=== PATIENT | male | born 1960 | race Caucasian/White ===

== ENCOUNTER → 2016-03-03 | Outpatient (CLI) | payer OTHER ==
--- NOTE | 2016-03-03 10:40 | DI ---
History: Elevated bilirubin. Evaluate for stone obstruction or mass. Prior examination abdomen CT performed 08/22/14 This procedure was performed on a 1.5 Lory magnet in axial and coronal projection with the right stella ging sequences including MRCP. No gadolinium contrast was administered. Findings: The heart is not enlarged. As discussed on the CT scan done 2 years ago, the inferior vena cava is prominent and moderately dilated. No filling defects are observed within the inferior vena ca va although there is some dephasing artifact with varying signal present. The portal vein is not dila olu. Regarding the liver, no focal mass is identified no intrahepatic ductal dilatation is identified . The common bile duct is somewhat prominent at 7 mm diameter but acceptable given the patient's stat us of prior cholecystectomy. No calculus is observed. No mass is observed. The pancreatic duct is wel l seen on image 06/27 and is not dilated. It is 2 mm in diameter. Kidneys appear normal. No mass or obstruction identified. The pancreas appears normal. Impression: No evidence of ductal dilatation in view of prior cholecystectomy. No evidence of focal h epatic or biliary mass. As noted in 2014, prominence of the inferior vena cava, possibly associated with an element of right heart failure. Clinical correlation advised.
== END ==
LOC: MRI 07:49
PROVIDERS: ATTEND Surgery
DX: E80.6 Other disorders of bilirubin metabolism (principal)
CPT/HCPCS: 74181

== ENCOUNTER → 2016-03-29 | Outpatient (CLI) | payer OTHER ==
[2016-03-29 12:41] LABS: ASPARTATE AMINO TRANSFERASE 34 IU/L (21-57); BILIRUBIN,TOTAL 1.4 mg/dL (0.3-1.2); BLOOD UREA NITROGEN 29 mg/dL (7-22); CALCIUM 9.4 mg/dL (8.7-10.7); CHLORIDE 102 meq/L (98-112); EST GLOMERULAR FILTRATION > 60 (>60 ml/min/1.73m(2)); GLUCOSE 96 mg/dL (78-110); HDL CHOLESTEROL 59 mg/dL (40-150); POTASSIUM 4.2 meq/L (3.8-5.2); SODIUM 138 meq/L (135-145); TOTAL PROTEIN 6.8 g/dL (6.1-8.0); TRIGLYCERIDES 88 mg/dL (44-200)
== END ==
LOC: LAB 11:42
PROVIDERS: ATTEND Family Medicine
DX: R94.5 Abnormal results of liver function studies (principal); R53.83 Other fatigue
CPT/HCPCS: 80053; 80061; 84443; 84550

== ENCOUNTER 2017-09-27 20:35 | Inpatient (IN) ==
[2017-09-27] MEDS ORDERED: ASPIRIN 81 MG (BABY) CHEWABLE TABLET PO ONE (20:47)
[2017-09-27] MEDS ORDERED: Sodium Chloride 0.9% 1,000 ML PRIMARY IV ONE (20:47)
[2017-09-27] MEDS ORDERED: DILTIAZEM 5 MG/ML - 5 ML IV ONE (20:49)
--- NOTE | 2017-09-27 20:49 | EKG ---
[address] [address] Measurements Intervals [place] Rate: 147 P: ME: 0 QRS: 66 QRSD: 93 T: -75 QT: 286 QTc: 370 Interpretive Statements ATRIAL FLUTTER/TACHYCARDIA WITH RAPID VENTRICULAR RESPONSE MODERATE VOLTAGE CRITERIA FOR LVH, CONSIDER NORMAL VARIANT [MEETS CRITERIA IN ONE OF: R (aVL), S(V1), R(V5), R(V5/V6)+S(V1)] ST DEVIATION AND MODERATE T-WAVE ABNORMALITY, CONSIDER INFERIOR ISCHEMIA [-0.1+ mV T WAVE IN II/aVF] INTERPRETATION BASED ON A DEFAULT AGE OF 40 YEARS No previous ECG available for comparison Electronically Signed On 09-28-17 08:32:41 MDT by Grayson Corona MD [id number]
[2017-09-27 20:54] LABS: BASOPHILS # (AUTO) 0.02 10*3/UL; BASOPHILS % (AUTO) 0.3 % (0-1); EOSINOPHILS % (AUTO) 2.9 % (0-8); Hemoglobin [HGB] 14.4 g/dL (14.0-18.0); LYMPHOCYTES # (AUTO) 1.42 10*3/uL; MEAN CORPUSCULAR HEMOGLOBIN 28.9 PG (27-31); MEAN CORPUSCULAR HGB CONC 32.7 g/dL (33-37); MEAN CORPUSCULAR VOLUME 88.2 FL (80-90); MONOCYTES # (AUTO) 0.65 10*3/UL (0.3-0.8); MONOCYTES % (AUTO) 9.4 % (5-15); NEUTROPHILS # (AUTO) 4.58 10*3/UL; NEUTROPHILS % (AUTO) 66.5 % (50-80); RED BLOOD COUNT 4.99 10^6/uL (4.70-6.10)
[2017-09-27 20:58] LABS: PLATELET MORPHOLOGY COMMENT NORMAL MORPHOLOGY (NORM); RBC MORPHOLOGY COMMENT NORMAL MORPHOLOGY (NORM); WBC MORPHOLOGY COMMENT NORMAL MORPHOLOGY (NORM)
[2017-09-27 20:59] LABS: BUN/CREATININE RATIO 22.3 (6-20); SERUM ALBUMIN 3.8 g/dL (3.5-4.8)
[2017-09-27] MEDS ORDERED: Diltiazem Drip 125 MG in Sodium Chloride 0.9% 100 ML IV ONE (21:10)
--- NOTE | 2017-09-27 22:15 | DI ---
AP CHEST X-RAY, 09/27/2017 8:48 PM : Clinical History: Chest pain. Previous Exam: 05/21/2008. There is no acute soft tissue or bony abnormality. Heart size is at the upper limits of normal. There is no CHF. Lungs are clear. Mediastinal structures are normal. There are no pulmonary nodules. Reading: Normal chest x-ray. There has been no significant interval change.
[2017-09-27] MEDS ORDERED: LIDOCAINE W/ SODIUM BICARB 0.5 ML SYR SUBD PRN (22:42)
[2017-09-27] MEDS ORDERED: Sodium Chloride 0.9% 1,000 ML PRIMARY IV SCH (22:45)
--- NOTE | 2017-09-27 22:50 | PDOC ---
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 He said he's been feeling unwell for more than a week with weakness tiredness,diarrhea abdominal cramps and low-grade fever for a week he is been sleeping a lot and taking ibuprofen for that. 2 days ago he started to feel improved and came back to work. Today he was on his bike and after mile on the bike he started to have some skipped beats went back home and started to feel his heart pounding. He denied chest pain there was some shortness of breath last week not worse today. Because of that he came into the ER was found to be in atrial flutter/ A. fib he was put on Cardizem drip and after bolus his heart rate went down to the 80s and he was admitted. Currently he feels better compared to when he came in. There is no chest pain no shortness of breath right now. No nausea or vomiting. His bowel movement is improving in consistency he said. Past Medical History Medical History: History of kidney stones before Surgical History: 1. History of knee scope. 2. History of surgery for kidney stones Pertinent Family History: Grandmother had history history of heart disease in his 50s Past Social History: Doesn't smoke doesn't occasionally drinks no drugs. Works a physical therapist here in the hospital. he is very active he rides his bike every day. Tobacco Use: Never Smoker In the Past 12 Months, Have Used or Abuse Any of the Following Substance: None Alcohol Use: Occasionally Medication / Allergies Home Medications: Home Medications 3 Medication Instructions Recorded Confirmed Type Ibuprofen [Advil] 1,200 mg PO DAILY PRN 12/20/11 09/27/17 History Glucosamine Sulfate Dipot Chlr 1,000 mg PO DAILY 02/13/16 09/27/17 History [Glucosamine] Multivitamin [Multivitamins] 1 ea PO DAILY 02/13/16 09/27/17 History Allergies/Adverse Reactions: Allergies 3 Allergy/AdvReac Type Severity Reaction Status Date / Time hydrocodone [Hydrocodone] AdvReac Severe VOMITING Verified 09/27/17 22:35 Review of Systems - Review of Systems All Systems: Reviewed & No Additional Complaints Except as Stated Exam - Vitals Vital Signs: Vital Signs Temperature 97.6 F Temperature Source Temporal Artery Scan Pulse Rate [Telemetry] 75 Pulse Rate 81 Respiratory Rate 14 Blood Pressure [Left Arm] 109/72 Blood Pressure 102/69 Pulse Ox 91 Oxygen Delivery Method Room Air Height 6 ft Weight 177 lb 2 oz - General General Appearance: No Acute Distress, Cooperative, Thin - Head Head Exam: Normal Inspection, Atraumatic - Eye Eye Exam: POSITIVE: Normal Appearance - ENT ENT Exam: POSITIVE: Normal Exam - Neck Neck Exam: Normal Inspection - Respiratory Respiratory Exam: POSITIVE: Clear to Auscultation - Bilaterally - Cardiovascular Cardiovascular Exam: POSITIVE: No Murmur, Irregular Rhythm - GI/Abdominal GI/Abdominal Exam: POSITIVE: Normal Bowel Sounds, Non Tender, Non Distended, Soft, No Organomegaly - Rectal Rectal Exam: POSITIVE: Deferred - External Exam: POSITIVE: Deferred Exam: POSITIVE: Deferred - Extremities Extremities Exam: POSITIVE: Normal Inspection - Back Back Exam: POSITIVE: Normal Inspection - Neurological Neurological Exam: POSITIVE: Alert, Oriented x 3, CN II-XII Intact, Speech Intact / Clear - Psychiatric Psychiatric Exam: POSITIVE: Normal Affect - Integumentary Integumentary Exam: POSITIVE: Normal Color Results - Labs CBC and BMP: 09/27/17 20:45 09/28/17 05:00 - EKG Data -: EKG Interpreted by Me Rate: Tachycardia - EKG Data EKG Interpretation: Other (EKG showed atrial flutter when he came in. Some ST changes in the inferior lead. Probably secondary to tachycardia.) - Imaging Status: Report Reviewed by Me (Chest X ray Normal) Assessment and Plan - Patient Problems (1) Atrial fibrillation Current Visit: Yes Status: Acute Comment: Duration unclear. Unfortunately we do not the capability to do an echocardiogram here. I did tell him this is either valvular versus nonvalvular atrial fibrillation. his risk factors seem to be 0 based on the Connor vascular score. But without an echo I cannot tell if he has LV dysfunction or valvular abnormalities. I told him I think will put him on eliquis until he has all the testing done and then can determine whether he can be only on aspirin. Will check INR first before we puts him on eliquis. Meanwhile I think we'll continue with the Ej drip see how things look tomorrow and then will decide about switching him to oral medications. We'll give him some fluids and the will check his magnesium. Clinically I don't think he is in heart failure. Code(s): I48.91 - Unspecified atrial fibrillation
--- NOTE | 2017-09-27 23:02 | PDOC ---
Palpitations HPI - General Chief Complaint: Palpitations Stated Complaint: Rapid Heart Rate Date Seen by Provider: 09/27/17 Time Seen by Provider: 20:40 Source: POSITIVE: Patient Exam Limitations: POSITIVE: No limitations Nurse's Notes Reviewed & Considered: Yes Nurse's Notes Reviewed & Considered: Yes - History of Present Illness Initial Comments: The patient is a 37-year-old male. 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 He states that 1-1/2 weeks ago he had "the flu" with fatigue, fevers, chills and diarrhea. He did not have any chest pain this evening. No syncope. He states he does feel "a little dizzy ". The patient is quite physically active and does a large amount of bicycle riding. He is on no medications and has no allergies. Body Location Affected: REPORTS: Chest ("Rapid heart rate ") Timing: REPORTS: Abrupt, Constant Duration: 1-3 hours Severity: Moderate Quality: REPORTS: Other (Patient denies any chest or other pain) Persistent/Worse since (date): 09/27/17 Persistent/Worse since (time): 19:00 Context: DENIES: Onset w/ Emotional Upset, Onset w/ Sleep, Hx of Caffeine Use, Hx of Decongestant Use, Hx of Cocaine Abuse, Hx of Amphetamine Abuse, Hx of Arrhythmia, Hx of VT, Hx of SVT, Hx of Atrial Fibrillation, Hx of WPW, Other Associated Symptoms: DENIES: Fever, Chills, Sweating, Mid-Chest Pain, Chest Pain , Chest Discomfort, Precordial Chest Pain, Neck Pain, Back Pain, Headache, Hurts to Breathe, Shortness of Breath, Light-Headedness, Anxiety, Tingling in Hands, Tingling in Face, Muscle Spasms in Hands, Muscle Spasms in Feet, Other Modifying Factors: improves with: None Reported Similar Symptoms Previously: No Recently seen/treated/hospitalized: No Any Prior Injuries Related to Current Complaint?: No - Patient Home Medications Home Medications: Home Medications Ibuprofen [Advil] 1,200 mg PO DAILY PRN 12/20/11 Glucosamine Sulfate Dipot Chlr [Glucosamine] 1,000 mg PO DAILY 02/13/16 Multivitamin [Multivitamins] 1 ea PO DAILY 02/13/16 - Patient Allergies Allergies/Adverse Reactions: Allergies 3 Allergy/AdvReac Type Severity Reaction Status Date / Time hydrocodone [Hydrocodone] AdvReac Severe VOMITING Verified 09/27/17 22:35 Past Medical History - heen HEENT History: Denies History Cardiovascular History: Other (please comment) Additional Cardiovasular History: BRADYCARDIC. 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 Respiratory History: Denies History Gastrointestinal History: Gallbladder Disease Genitourinary History: Kidney Stones Endocrine History: Denies History Musculoskeletal History: Denies History Prosthesis or Implant: No Additional Musculoskeletal History: NECK PAIN Neurological History: Denies History Blood Disorders: Denies History Psychiatric History: Denies History History of Sexually Transmitted Diseases: No Male Reproductive History: Denies History Cancer History: Denies History In Past Year Been Physically Harmed or Verbally Threatened: No History of MDRO: No History of Other Communicable Diseases: No Tobacco Use: Never Smoker Alcohol Use: Other In the Past 12 Months, Have Used or Abuse Any Substance: None Previous Surgical History: Yes Type / Date of Surgery: NABEEL/KNEE 30 YRS AGO Anesthesia Reactions: No Malignant Hyperthermia: No Significant Family History: No pertinent family hx Past Medical History Reviewed: Reviewed - No Changes ROS - Limitations ROS Limitations: No Limitations Constitution: REPORTS: Denies Symptoms Cardiovascular: REPORTS: Heart Racing Respiratory: REPORTS: Denies Resp Symptoms Neurological: REPORTS: Denies Neuro Symptoms Gastrointestinal: REPORTS: Denies GI Symptoms Endocrine: REPORTS: Denies Symptoms Musculoskeletal: REPORTS: Denies MS Symptoms Genitourinary: REPORTS: Denies Symptoms Eyes: REPORTS: Denies Symptoms ENT: REPORTS: Denies Symptoms Skin: REPORTS: Denies Skin Symptoms Lympathic: REPORTS: Denies Lympathic Symptoms Immunologic: POSITIVE: Denies Symptoms Psychiatric: POSITIVE: Denies Psych Symptoms Palpitations Exam - General Appearance General Appearance: REPORTS: Alert, Cooperative, No Acute Distress, No Evidence of Trauma - HEENT HEENT: POSITIVE: Head Inspection Nml, Eyes Inspection Nml, Ears Inspection Nml, Nose Inspection Nml, Oral/Dental Inspect. Nml, Pharynx Inspect. Nml, PERRL, EOMI - Neck Neck: POSITIVE: Normal Inspection - Respiratory Respiratory: REPORTS: No Respiratory Distress, Breath Sounds Normal, Chest Non- Tender - Cardiovascular Cardiovascular: POSITIVE: Normal PMI, No JVD, No Murmur, No Gallop, No Friction Rub, Irreg Irregular Rhythm, Tachycardia. NEGATIVE: Regular Rate and Rhythm ( irregularly irregular tachycardia), Occasional Extrasystoles, Frequent Extrasystoles, PMI Displaced Laterally, JVD Present, Murmur, S3 Gallop, S4 Gallop, Friction Rub, Decreased Pulse(s) Peripheral Pulses: Radial (R): 2+, Radial (L): 2+ - Abdomen Abdomen: Soft: (All Quadrants), Normal Bowel Sounds: (All Quadrants), Denies Tenderness: (All Quadrants), No Splenomegaly: (All Quadrants), No Hepatomegaly: (All Quadrants), No Guarding: (All Quadrants), No Rebound: (All Quadrants), No Palpable Pulse: (All Quadrants), No Palpabale Mass: (All Quadrants), No Distention: (All Quadrants), No Rigidity: (All Quadrants) - Back Back: POSITIVE: Normal Inspection - Skin Skin: REPORTS: Intact, Normal For Race, Warm, Dry, No Rash - Extremities Extremity: Non-Tender: (All Extremities), Normal ROM: (All Extremities), Normal Inspection: (All Extremities) - Neurological / Psychological Neurological: POSITIVE: Affect Apporpriate, Oriented X3, 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, Motor Normal, Sensation Normal Palpitations Progress - Results Reviewed by me Xrays/CTs/US Reviewed by me: Yes Discussed with Radiologist: Yes Radiology Findings: Normal chest x-ray Lab Results Reviewed by Me: Yes (troponin normal; TSH normal, CBC CMP normal) Lab Results:: Laboratory Results 3 09/27/17 09/27/17 09/27/17 20:45 20:45 20:45 WBC 6.89 RBC 4.99 Hgb 14.4 Hct 44.0 MCV 88.2 MCH 28.9 MCHC 32.7 L RDW Std Deviation 41.7 RDW Coeff of Chuck 13.1 Plt Count 269 MPV 9.0 Immature Gran % (Auto) 0.3 Neut % (Auto) 66.5 Lymph % (Auto) 20.6 Zapata % (Auto) 9.4 Eos % (Auto) 2.9 Baso % (Auto) 0.3 Immature Gran # (Auto) 0.02 Neut # (Auto) 4.58 Lymph # (Auto) 1.42 Zapata # (Auto) 0.65 Eos # (Auto) 0.20 Baso # (Auto) 0.02 WBC Morphology Comment Normal morphology Plt Morphology Comment Normal morphology RBC Morph Comment Normal morphology Sodium 144 Potassium 3.8 Chloride 105 Carbon Dioxide 29 Anion Gap 10 BUN 29 H Creatinine 1.3 Estimated GFR 57 BUN/Creatinine Ratio 22.30 H Glucose 122 H Calculated Osmolality 304.0 H Calcium 9.5 Total Bilirubin 0.7 AST 44 ALT 93 H Alkaline Phosphatase 138 H CK-MB (CK-2) 2.42 Troponin I < 0.012 NT-Pro-B Natriuret Pep Total Protein 7.1 Albumin 3.8 Globulin 3.2 Albumin/Globulin Ratio 1.10 L TSH 3 09/27/17 09/27/17 21:15 21:15 WBC RBC Hgb Hct MCV MCH MCHC RDW Std Deviation RDW Coeff of Chuck Plt Count MPV Immature Gran % (Auto) Neut % (Auto) Lymph % (Auto) Zapata % (Auto) Eos % (Auto) Baso % (Auto) Immature Gran # (Auto) Neut # (Auto) Lymph # (Auto) Zapata # (Auto) Eos # (Auto) Baso # (Auto) WBC Morphology Comment Plt Morphology Comment RBC Morph Comment Sodium Potassium Chloride Carbon Dioxide Anion Gap BUN Creatinine Estimated GFR BUN/Creatinine Ratio Glucose Calculated Osmolality Calcium Total Bilirubin AST ALT Alkaline Phosphatase CK-MB (CK-2) Troponin I NT-Pro-B Natriuret Pep 142 H Total Protein Albumin Globulin Albumin/Globulin Ratio TSH 3.13 CBC and BMP: 09/27/17 20:45 09/27/17 20:45 EKG Interpreted/Reviewed By Me:: Yes (2044 atrial fibrillation/flutter 1 47/m. 2120 atrial fibrillation 85 from ) EKG Interpretation:: POSITIVE: Normal Intervals, Normal M[place]ie, Normal QRS, Normal ST/T, Abnormal EKG, Repeat EKG (cardiogram after diltiazem IV showed atrial fibrillation at 85 from minute). NEGATIVE: Normal Sinus Rhythm (atrial fibrillation), Normal Rate (tachycardia initial electrocardiogram) - Patient's Progress Pain Medication Addressed: POSITIVE: Not Applicable School/Work Release Addressed: POSITIVE: Not Applicable Re-examine Time: 21:35 Re-Examine Comment: Patient responded well to diltiazem, 0.25 mg/kg and rate became controlled. Patient started on Cardizem drip at 10 mg/h. Repeat electrocardiogram at 2120 showed atrial fibrillation at 85/m. Patient feels better. Status: POSITIVE: Improved, Re-Examined - Consult Consult (If Yes, Name of Consulting MD & Time Called): Yes (Dr. Reyes, hospitalist, [id number]) Consulting MD will see pt:: POSITIVE: [facility] [place] Admit Counseled: POSITIVE: Patient, Family, RE: Lab Results, RE: Radiology Results, RE : DX, RE: Need for F/U Patient Care Time - Estimated PCT Patient Care Time (In Minutes): 50 Vital Signs - Recent Vital Signs Vital Signs: Vital Signs (Last 8 hours) Temp Pulse Pulse Pulse Resp BP BP 09/27/17 22:18 80 75 14 109/72 09/27/17 22:15 97.6 F 81 16 102/69 09/27/17 21:45 89 102/69 09/27/17 21:30 72 16 94/67 09/27/17 21:15 82 16 99/74 09/27/17 21:01 89 90/60 09/27/17 20:39 97.6 F 144 H 12 105/66 09/27/17 20:35 97.6 F 144 H 144 H 12 105/66 Pulse Ox 09/27/17 22:18 91 09/27/17 22:15 96 09/27/17 21:45 09/27/17 21:30 09/27/17 21:15 96 09/27/17 21:01 09/27/17 20:39 96 09/27/17 20:35 96 - VS Reviewed Vital Signs Reviewed: Yes Discharge Clinical Impression: Atrial fibrillation Discharge Disposition: Admit to Inpatient Condition: Good Date Decision to Admit to Inpatient: 09/27/17 Time Decision to Admit to Inpatient: 21:35
--- NOTE | 2017-09-28 02:12 | EKG ---
[address] [address] Measurements Intervals [place] Rate: 85 P: SC: 0 QRS: 66 QRSD: 98 T: 28 QT: 379 QTc: 421 Interpretive Statements ATRIAL FIBRILLATION ST ELEVATION, PROBABLY EARLY REPOLARIZATION [ST ELEVATION WITH NORMALLY INFLECTED T WAVE] ABNORMAL RHYTHM ECG Compared to ECG 09/27/2017 20:45:28 ST (T wave) deviation now present Early repolarization now present Atrial flutter no longer present T-wave abnormality no longer present Possible ischemia no longer present Electronically Signed On 09-28-17 08:33:11 MDT by Grayson Corona MD [id number]
[2017-09-28] MEDS ORDERED: Sodium Chloride 0.9% 1,000 ML PRIMARY IV SCH (04:18)
[2017-09-28 06:41] LABS: BLOOD UREA NITROGEN 24 mg/dL (7-22); SERUM ALBUMIN 2.9 g/dL (3.5-4.8)
[2017-09-28] MEDS ORDERED: DILTIAZEM 30 MG TABLET PO PRN ×2 (07:08→13:59)
--- NOTE | 2017-09-28 07:13 | PDOC(PROG) ---
Date and Time of Service: 09/28/2017 7:15 AM Interval History: Subjective Patient feels back to his usual self. Denying chest pain denying shortness of breath. No other symptoms. No palpitations. Objective : Data - Labs CBC and BMP: 09/27/17 20:45 09/28/17 05:00 Objective : Exam - General General Appearance: No Acute Distress, Cooperative - Head Head Exam: Normal Inspection - Eye Eye Exam: Normal Appearance - ENT ENT Exam: Normal Exam - Neck Neck Exam: Normal Inspection - Respiratory Respiratory Exam: Clear to Auscultation - Bilaterally - Cardiovascular Cardiovascular Exam: Irregular Rhythm - GI/Abdominal GI/Abdominal Exam: Normal Bowel Sounds, Non Tender, Non Distended, Soft, No Organomegaly - Rectal Rectal Exam: Deferred - External Exam: Deferred Exam: Deferred - Extremities Extremities Exam: Normal Inspection - Back Back Exam: Normal Inspection - Neurological Neurological Exam: Alert, Oriented x 3, CN II-XII Intact, No Facial Droop, Speech Intact / Clear, Moves All Extremities Equally - Psychiatric Psychiatric Exam: Normal Affect - Integumentary Integumentary Exam: Normal Color Assessment and Plan - Patient Problems (1) Atrial fibrillation Current Visit: Yes Status: Acute Comment: Still in atrial fibrillation. Duration unclear. May be started at the same time he he felt ill last week. Not sure whether it's longer than that. Rate is controlled. I think we'll switch him to oral Cardizem. Will start eliquis today. I did tell him we will watch him overnight just to make sure that his rate is controlled with the by mouth medication we may have to adjust the dosage depending on his response. He will need follow-up with cardiology to do an echocardiogram and probably stress test down the road. Code(s): I48.91 - Unspecified atrial fibrillation
[2017-09-28] MEDS: DILTIAZEM HCL CD 120 MG CAP PO SCH ×2 (07:33→08:40)
[2017-09-28] MEDS ORDERED: Apixaban 5 MG TABLET PO SCH ×2 (09:00→21:00)
[2017-09-28] MEDS ORDERED: LIDOCAINE W/ SODIUM BICARB 0.5 ML SYR SUBD PRN (13:59)
[2017-09-28 17:44] VITALS: RESP 16
--- NOTE | 2017-09-28 18:09 | EKG ---
[address] [address] Measurements Intervals [place] Rate: 59 P: 46 DE: 153 QRS: 78 QRSD: 87 T: 37 QT: 404 QTc: 403 Interpretive Statements SINUS BRADYCARDIA ST ELEVATION, PROBABLY EARLY REPOLARIZATION [ST ELEVATION WITH NORMALLY INFLECTED T WAVE] Compared to ECG 09/27/2017 21:21:11 Atrial fibrillation no longer present ST (T wave) deviation still present Electronically Signed On 09-29-17 13:36:13 MDT by Jeyson Lancaster [id number]
[2017-09-29 04:37] VITALS: BP 111/57; TEMP 98.6
[2017-09-29 06:48] VITALS: O2SAT 95
--- NOTE | 2017-09-29 07:15 | DCSUMMARY ---
Hospitalization Summary Admit Date: 09/27/2017 Discharge Date: 09/29/17 Hospital Course: Discharge diagnoses 1. Paroxysmal A. fib 2. 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 He said he's been feeling unwell for more than a week with weakness, tiredness, diarrhea, abdominal cramps and low-grade fever for a week and he was sleeping a lot and taking ibuprofen for that. 2 days prior to admission he started to feel improved and came back to work. On the day of admission he was on his bike and after a mile he started the have a skipped beats he went back home started to feel his heart pounding. He denied chest pain there was some shortness of breath the week before admission but it was not worse on the day of admission. Because of the rapid heart rate he came into the ER was found to be in atrial flutter/A. fib was put on Cardizem drip and after a bolus his heart rate went down to the 80s and he was admitted. When I saw him he felt better compared to when he came in. There was no chest pain and no shortness of breath at the time of assessment. No nausea no vomiting. he reported that his Bowel movement consistency improved. We repeated his cardiac enzymes and remained negative. Chest x-ray was negative. We don't have the capability to do an echocardiogram here. In addition to putting him on Cardizem drip we started him on eliquis I thought until we know exactly whether there is a ventricular clots or LV dysfunction or valvular abnormalities I thought this is a better choice for now. The next day he was still feeling better we switched from the Cardizem drip to by mouth Cardizem. Later on, in afternoon yesterday he converted back to sinus rhythm. On the day of discharge he was denying symptoms feeling well. Exam was unremarkable. I did speak with Dr. Bolanos about him and he knows about him. We thought that he can be discharged home. I did discharge him on 2 weeks of Cardizem and eliquis until all the testing be done and evaluation by cardiology is done. I did tell him if everything is negative he probably can go off those medications and continue only on aspirin, but I'll leave it to the ship's surveyor to decide to continue or not. Laboratory Results 09/28/17 Range/Units 10:05 Troponin I 0.015 (< 0.040) ng/mL Discharge suction Diet regular Activity as tolerated Medications Current Medication(s) 3 Medication Instructions Recorded Confirmed Type Glucosamine Sulfate Dipot Chlr 1,000 mg PO DAILY 02/13/16 09/27/17 History [Glucosamine] Multivitamin [Multivitamins] 1 ea PO DAILY 02/13/16 09/27/17 History Apixaban [Eliquis] 5 mg PO BID #28 tab 09/29/17 Rx Diltiazem 24Hr ER [Cardizem Cd] 120 mg PO DAILY #14 cap.sr.24h 09/29/17 Rx Follow-up with Dr. Bolanos within a week Condition at discharge was stable for discharge Exam - Vitals Vital Signs: Vital Signs Temperature 98.6 F Temperature Source Oral Pulse Rate [Apical] 65 Pulse Rate [Telemetry] 63 Pulse Rate 55 Respiratory Rate 16 Blood Pressure [Left Arm] 111/57 Blood Pressure 102/69 Pulse Ox 95 Oxygen Delivery Method Room Air Height 6 ft Weight 176 lb 6.4 oz - General General Appearance: No Acute Distress, Cooperative - Head Head Exam: Normal Inspection - Eye Eye Exam: POSITIVE: Normal Appearance - ENT ENT Exam: POSITIVE: Normal Exam - Neck Neck Exam: Normal Inspection - Respiratory Respiratory Exam: POSITIVE: Clear to Auscultation - Bilaterally - Cardiovascular Cardiovascular Exam: POSITIVE: RRR - GI/Abdominal GI/Abdominal Exam: POSITIVE: Normal Bowel Sounds, Non Tender, Non Distended, Soft, No Organomegaly - Rectal Rectal Exam: POSITIVE: Deferred - External Exam: POSITIVE: Deferred Exam: POSITIVE: Deferred - Extremities Extremities Exam: POSITIVE: Normal Inspection - Back Back Exam: POSITIVE: Normal Inspection - Neurological Neurological Exam: POSITIVE: Alert, Oriented x 3, Normal Gait, CN II-XII Intact , No Facial Droop, Speech Intact / Clear - Psychiatric Psychiatric Exam: POSITIVE: Normal Affect - Integumentary Integumentary Exam: POSITIVE: Normal Color Patient Problems - Patient Problem List (1) Atrial fibrillation Status: Acute Code(s): I48.91 - Unspecified atrial fibrillation Category: Medical
[2017-09-29] MEDS ORDERED: DILTIAZEM HCL CD 120 MG CAP PO SCH ×2 (09:00)
== END 2017-09-29 07:47 | disposition home or self-care (01) | DRG 310 ==
LOC: ER 20:35 → ICU 22:05 → MED/SURG 09-28 14:15
PROVIDERS: ADMIT Internal Medicine; ATTEND Internal Medicine